=== PATIENT | female | born 1945 | race Caucasian/White ===

== ENCOUNTER 2016-08-26 14:00 | Emergency (ER) | payer MEDICARE ==
[~2016-08-26] VITALS: Ht 167.6 cm; Wt 90.9 kg
[~2016-08-26 14:00] MED LIST: ALPR0.25 PO; ASPI-973 PO; CITA40TA13 PO; DICY10CA13 PO; HYDR12.5 PO; IBUP200C PO; LOPE2CAP PO; OMEP20TA86 PO; SIMV20TA4 PO
[2016-08-26 14:06] VITALS: BP 133/73; PULSE 71; RESP 20; O2SAT 96
[2016-08-26 14:36] LABS: BASOPHILS % (AUTO) 0.4 % (0-3); EOSINOPHILS % (AUTO) 1.5 % (0-5); MONOCYTES % (AUTO) 13.6 % (4-12); Mean Corpuscular Hemoglobin 31.9 pg (27.0-35.0); NEUTROPHILS % (AUTO) 70.5 % (40-74); Platelet Count 104 bil/L (150-400)
[2016-08-26 14:55] LABS: Magnesium 1.8 mg/dL (1.6-2.6)
--- NOTE | 2016-08-26 15:54 | ED.REPORT ---
HPI-Abd Pain F 40 and Over Date of Service Aug 26, 2016 ED Provider: Bri Carlos History of Present Illness: right lower pain in the abd and radiating to the back since Sunday in the afternoon around 4 pm.no hx of stones, nausea. taking ibuprofen which is helpful . primary care is brooklynn tobias. Seen Sunday for it went to urgent care. Dx with a trace of a bladder infection. on cipro Nursing Notes Stated Complaint: PAIN ON RIGHT SIDE,GROIN Chief Complaint: Female Abdominal Pain Allergies: Coded Allergies: Penicillins (Verified Allergy, Severe, 03/26/15) codeine (Verified Allergy, Severe, 03/26/15) metoclopramide (Verified Allergy, Severe, 03/26/15) oxycodone (Verified Allergy, Intermediate, 03/26/15) Uncoded Allergies: CORTISONE (Allergy, Severe, 12/08/08) Scheduled Aspirin (Aspirin) 81 Mg Tablet 81 MG PO DAILY Citalopram (Citalopram) 40 Mg Tablet 40 MG PO DAILY Hydrochlorothiazide (Hydrochlorothiazide) 12.5 Mg Capsule 12.5 MG PO DAILY Loperamide (Loperamide) 2 Mg Capsule 4 MG PO Q4H Omeprazole (Omeprazole) 20 Mg Tablet.dr 20 MG PO BID Simvastatin (Simvastatin) 20 Mg Tablet 20 MG PO HS Scheduled PRN Alprazolam (Xanax) 0.25 Mg Tablet 0.125 MG PO TID PRN PRN For Anxiety Dicyclomine (Dicyclomine) 10 Mg Capsule 10 MG PO QID PRN PRN For GI Cramps Ibuprofen (Ibuprofen) 200 Mg Capsule 200 MG PO QID PRN PRN For Pain General Time Seen by MD: 15:53 Chief Complaint Abdominal pain Hx Obtained From: Patient Sudden in Onset?: Yes Symptom Duration: Since onset Past Medical History Past Medical History Denies: Asthma, Diabetes mellitus Past Surgical History ovaries, knee times 2, carpal tunnel Reports: (times 2), Hysterectomy Smoking History Never Smoker Social History Alcohol Use: "Social" Drug Use: Denies drug use Other Social History: Occupation lives with in 1 story house, no work or school 08/26/2016 Ambulatory Status Independent Review of Systems Basic Review of Systems Eyes: Vision NL, No discharge Skin: No bruising, No rash, No itch Psychiatric: Normal thought content Physical Exam Vital Signs Vital Signs (First) Date Time Temp Pulse Resp B/P Pulse Ox O2 Delivery O2 Flow Rate FiO2 08/26/16 14:06 36.6 71 20 133/73 96 Room Air Initial VS: Reviewed, Vital signs normal Head / Eyes: Atraumatic, Normocephalic, PERRL ENT: Mucous membranes moist, Conjunctiva normal, No scleral icterus Neck: Supple, Non-tender, Full range of motion Lymphatic: No lymphadenopathy Extremities: Vascular intact, Neuro intact, No swelling, No tenderness Skin: Warm, Dry, No cyanosis Neurologic: Alert, Oriented, Nonfocal Psychiatric: Mood/affect normal, Behavior normal, Normal thought content General/Constitutional: Awake, Alert, No acute distress, Well appearing, Well developed, Well hydrated Respiratory / Chest: Atraumatic, Breath sounds NL, Breath sounds = bilat, No respiratory distress Cardiovascular: Heart rate NL, Regular rhythm, Heart sounds NL Abdomen: Atraumatic, Soft, Non-tender, No guarding, No rebound, BS normoactive no pain to palpation has right lower flank pain to palpation Interpretation & Diagnostics Interpretation & Diagnostics: PROCEDURE: CT KUB ([id number]) INDICATIONS: right side pain TECHNIQUE: Noncontrast 5 mm thick sections acquired from the diaphragms to the symphysis. 5 mm thick coronal and sagittal reformats were then performed. For radiation dose reduction, the following was used: automated exposure control, adjustment of mA and/or kV according to patient size. COMPARISON: None. FINDINGS: Image quality: Excellent. Lung bases: Lung bases are clear. Heart size is normal. Urinary system: Both kidneys are normal in size. No kidney stones. The left kidney is normal in appearance. The right kidney suggests to collecting systems with slight stranding around the central aspect of the inferior collecting system. No stones are seen in the collecting systems, routes of ureters or in the bladder on either side. Both ureters appear non-dilated throughout their expected courses. Bladder wall thickness is normal; no calcified bladder stones. Other solid organs: Liver and spleen are normal in size. Prominent diffuse fatty infiltration of the liver is noted. Gallbladder is within normal limits. Pancreas is normal in contours. No adrenal nodules. Peritoneum and bowel: Unenhanced bowel loops demonstrate normal wall thickness and caliber. No free fluid or air. There is a normal appendix. Nodes and vessels: No retroperitoneal or mesenteric adenopathy by size criteria. Aorta and inferior vena cava are normal in caliber. Abdominal wall: No ventral hernias. Pelvis: No free pelvic fluid. No inguinal hernias or adenopathy. Bones: No suspicious bony lesions. No vertebral body compression fractures. IMPRESSION: 1. Duplicated collecting system the right kidney 2. Suggestion of some stranding and mild hydronephrosis of the inferior pole collecting system on the right. Upper pole and left kidney are considered normal. There is evidence to suggest the patient has passed a stone is non-is seen. Bladder is normal. 3. Diffuse fatty changes in the liver Dictated by: Pete Meyres M.D. on 08/26/2016 at 18:02 case was discussed with ER clinician Approved by: Pete Meyers M.D. on 08/26/2016 at 18:11 Lab Results Interpretation Result Diagram: 08/26/16 1425 08/26/16 1425 Test 08/26/16 14:25 08/26/16 15:45 White Blood Count 8.6th/mm3 (3.8-10.1) Red Blood Count 4.51mil/mm3 (3.90-5.20) Hemoglobin 14.4g/dL (12.0-15.6) Hematocrit 42.4% (35.0-46.0) Mean Corpuscular Volume 94.0fL (81-100) Mean Corpuscular Hemoglobin 31.9pg (27.0-35.0) Mean Corpuscular Hemoglobin Concent 34.0% (32.0-37.0) Red Cell Distribution Width 12.9% (12.3-15.4) Platelet Count 104bil/L (150-400) Neutrophils (%) (Auto) 70.5% (40-74) Lymphocytes (%) (Auto) 13.8% (14-46) Monocytes (%) (Auto) 13.6% (4-12) Eosinophils (%) (Auto) 1.5% (0-5) Basophils (%) (Auto) 0.4% (0-3) Sodium Level 135mEq/L (134-144) Potassium Level 3.9mEq/L (3.5-5.2) Chloride Level 97mEq/L (97-108) Carbon Dioxide Level 21mmol/L (18-29) Blood Urea Nitrogen 19mg/dL (8-27) Creatinine 0.71mg/dL (0.57-1.00) Estimat Glomerular Filtration Rate 116mL/min (>59) Glucose Level 123mg/dL (60-99) Calcium Level 9.7mg/dL (8.5-10.1) Magnesium Level 1.8mg/dL (1.6-2.6) Total Bilirubin 0.8mg/dL (0.0-1.2) Aspartate Amino Transf (AST/SGOT) 21U/L (0-50) Alanine Aminotransferase (ALT/SGPT) 28U/L (0-32) Alkaline Phosphatase 58U/L (25-165) Total Protein 7.1g/dL (6.4-8.4) Albumin 4.0g/dL (3.4-5.0) Lipase 69U/L (13-60) Hold Garcia Top Tube Received (Received) Urine Color Yellow (YELLOW) Urine Appearance Clear (CLEAR,HAZY) Urine pH 5.5 (5.0-8.0) Urine Specific [place] 1.025 (1.003-1.035) Urine Protein Negativemg/dL (NEG,TRACE) Urine Glucose (UA) Negativemg/dL (NEGATIVE) Urine Ketones Negativemg/dL (NEGATIVE) Urine Occult Blood Trace (NEGATIVE) Urine Nitrite Negative (NEGATIVE) Urine Bilirubin Negative (NEGATIVE) Urine Urobilinogen Normalmg/dL (NORMAL) Urine Leukocyte Esterase Negative (NEGATIVE) Urine RBC 0-2/hpf (0-2) Urine WBC 0-5/hpf (0-5) Urine Epithelial Cells Few/hpf (NONE-MOD) Urine Crystals None seen (NONE SEEN) Urine Bacteria Few/hpf (NONE-FEW) Urine Hyaline Casts None/lpf (NONE) Urine Granular Casts None seen (NONE SEEN) Urine Waxy Casts None seen (NONE SEEN) Urine Red Blood Cell Casts None seen (NONE SEEN) Urine White Blood Cell Casts None seen (NONE SEEN) Urine Mucus None seen (None Seen) Urine Trichomonas None seen (NONE SEEN) Urine Yeast None (NONE SEEN) Urinalysis Comment None Urine Culture Reflexed Not indicated Lab Results Interpretation: urine looks clear Re-Eval/Medical Decision Med Decision/Clinical Course 70 year old female presents to the ER for evualation of right lower pain which radiates to her right back. Patient states the pain started around 4 pm on Sunday. Seen at the urgent care clinic yesterday and dx with a trace of a bladder infection. Patient reporting this does not feel like a bladder infection. CT KUB shows a double collecting system on the right with the lower system possible recently passed a stone. Mild fat stranding present. Discharge & Departure Primary Impression: Abdominal pain, right lower quadrant Disposition: Home Patient Instructions: Acute Abdominal Pain (ED) Additional Instructions: Your urine looks good. Your labs are normal. The CT report indicates you have a duplicated collecting system on the right. There is a suggestion of fat stranding and mild hydronephrosis of the inferior pole collecting system on the right. This means you may have had a stone and passed it. As you can tell me the time the pain started this is a possibility. Fat stranding can indicate an infection. Continue with the cipro that you are taking. Drink lots of fluid. Also use ketorolac 10 mg every 4 hours as needed for pain. Please call urology for follow up on this. Call Dr. Cook's office. Return with any concerns. Referrals: Brooklynn Tobias (PCP) Shahriar Cook MD EDSupervising Provider for APC: Roshan Ayala MD copies to: Brooklynn Tobias; Shahriar Cook MD, Sue ARNP Aug 26, 2016 15:54
[2016-08-26] MEDS ORDERED: Ondansetron 2 mg/mL 2 mL Inj IVPUSH ONE (16:05)
[2016-08-26] MEDS ORDERED: 0.9% Sodium Chloride 1,000 ML IV ONE (16:05)
[2016-08-26 16:33] LABS: APPEARANCE,URINE CLEAR (CLEAR,HAZY); COLOR,URINE YELLOW (YELLOW); PH,URINE 5.5 (5.0-8.0)
[2016-08-26 16:34] LABS: OCCULT BLOOD,URINE TRACE (NEGATIVE); UROBILINOGEN,URINE NORMAL (NORMAL)
--- NOTE | 2016-08-26 18:13 | DRSVH ---
PROCEDURE: CT KUB ([id number]) INDICATIONS: right side pain TECHNIQUE: Noncontrast 5 mm thick sections acquired from the diaphragms to the symphysis. 5 mm thick coronal an d sagittal reformats were then performed. For radiation dose reduction, the following was used: aut omated exposure control, adjustment of mA and/or kV according to patient size. COMPARISON: None. FINDINGS: Image quality: Excellent. Lung bases: Lung bases are clear. Heart size is normal. Urinary system: Both kidneys are normal in size. No kidney stones. The left kidney is normal in ap pearance. The right kidney suggests to collecting systems with slight stranding around the central as pect of the inferior collecting system. No stones are seen in the collecting systems, routes of urete rs or in the bladder on either side. Both ureters appear non-dilated throughout their expected course s. Bladder wall thickness is normal; no calcified bladder stones. Other solid organs: Liver and spleen are normal in size. Prominent diffuse fatty infiltration of the liver is noted. Gallbladder is within normal limits. Pancreas is normal in contours. No adrenal no dules. Peritoneum and bowel: Unenhanced bowel loops demonstrate normal wall thickness and caliber. No free fluid or air. There is a normal appendix. Nodes and vessels: No retroperitoneal or mesenteric adenopathy by size criteria. Aorta and inferior vena cava are normal in caliber. Abdominal wall: No ventral hernias. Pelvis: No free pelvic fluid. No inguinal hernias or adenopathy. Bones: No suspicious bony lesions. No vertebral body compression fractures. IMPRESSION: 1. Duplicated collecting system the right kidney 2. Suggestion of some stranding and mild hydronephrosis of the inferior pole collecting system on the right. Upper pole and left kidney are considered normal. There is evidence to suggest the patient gonzalez s passed a stone is non-is seen. Bladder is normal. 3. Diffuse fatty changes in the liver Dictated by: Pete Meyers M.D. on 08/26/2016 at 18:02 case was discussed with ER clinician Approved by: Pete Meyers M.D. on 08/26/2016 at 18:11
[2016-08-26 18:18] VITALS: BP 125/75; PULSE 57
== END 2016-08-26 19:06 | disposition home or self-care (01) ==
LOC: SED 14:00
DX: R10.31 Right lower quadrant pain (principal); Z79.82 Long term (current) use of aspirin; Z88.0 Allergy status to penicillin; Z88.5 Allergy status to narcotic agent; Z88.8 Allergy status to other drugs, medicaments and biological substances
CPT/HCPCS: 36415; 74176; 80053; 81000; 83690; 83735; 85025; 96361; 96374; 96375; 99285; J1885; J2405; J7030